=== PATIENT | male | born 1985 | race Caucasian/White ===

== ENCOUNTER 2018-03-18 12:04 | Emergency (ER) | payer OTHER ==
[2018-03-18] MEDS: oxyCODONE/APAP 5/325 1 TAB TABLET PO (12:54)
[2018-03-18] MEDS: diazePAM 5 MG TABLET PO (12:54)
[2018-03-18] MEDS: KETOROLAC 60 MG/2 ML INJ. IM (12:55)
== END 2018-03-18 13:07 | disposition home or self-care (01) ==
LOC: ER 12:04
DX: M54.32 Sciatica, left side (principal); M54.89 Other dorsalgia; Z88.8 Allergy status to other drugs, medicaments and biological substances
CPT/HCPCS: 96372; 99283-25; J1885